=== PATIENT | male | born 1970 | race Caucasian/White ===

== ENCOUNTER 2022-03-19 14:59 | Emergency (ER) | payer OTHER, SELFPAY ==
[2022-03-19 15:13] VITALS: BP 144/84; PULSE 105; RESP 18; TEMP 36.8; O2SAT 95; BMI 41.1
--- NOTE | 2022-03-19 15:35 | CRLHL7_ITS ---
For Patients: As a result of the Cures Act, medical imaging exams and procedure reports are released immediately into your electronic medical record. You may view this report before your referring provider. If you have questions, please contact your health care provider. Indication: Chest Pain Comparison: Two-view chest February 29, 2020 Technique: PA and lateral views of the chest Findings: There is hyperinflation and chronic interstitial changes with minimal basilar atelectasis and parenchymal scar. There is no dense consolidation or effusion. The cardiac silhouette is mildly prominent. The bony thorax is grossly intact. Impression: Hyperinflation and chronic interstitial change with minimal basilar atelectasis. No dense consolidation. Dictated by Waqas Del Real MD @ 03/19/2022 5:42:43 PM (Electronically Signed)
[2022-03-19 16:00] VITALS: BP 125/74; PULSE 80; RESP 20; O2SAT 95
[2022-03-19 16:06] LABS: Chloride* 101 mmol/L (96-114); Sodium* 138 mmol/L (135-149)
[2022-03-19 16:07] LABS: Albumin* 4.2 g/dL (3.3-5.0); Potassium* 3.8 mmol/L (3.6-5.1)
[2022-03-19 16:09] LABS: Carbon Dioxide* 30 mmol/L (20-32); Creatinine* 1.4 mg/dL (0.5-1.5); Est. Creatinine Clearance* 72.58; Estimated Glomerular Filt Rate 61 ml/min
[2022-03-19 16:10] LABS: Aspartate Amino Transferase* 22 U/L (12-35); Basophils Absolute Auto 0.02 K/uL (0.00-0.30); Basophils Percent Auto 0.3 % (0.0-3.0); Bilirubin Direct* 0.3 mg/dL (0.0-0.5); Bilirubin Total* 0.5 mg/dL (0.1-1.5); Blood Urea Nitrogen* 18 mg/dL (7-30); Calcium* 9.2 mg/dL (8.4-10.6); Eosinophils Percent Auto 1.7 % (0.0-7.0); Glucose* 159 mg/dL (60-115); Hematocrit 42.7 % (37.0-53.0); Hemoglobin* 14.2 gm/dL (13.5-17.5); Immature Granulocytes Abs Auto 0.02 K/uL (0.00-0.30); Mean Corpuscular HGB Conc 33 gm/dL (32-36); Mean Corpuscular Hemoglobin 28 pg (26-34); Mean Corpuscular Volume 83 fL (80-100); Monocytes Percent Auto 6.3 % (0.0-11.0); Neutrophils Percent Auto 76.4 % (42.0-72.0); Platelet Count* 142 K/uL (140-440); RDW Coefficient of Variation % 15.2 % (11.5-15.5); Red Blood Count 5.16 m/uL (4.30-5.90); Total Protein* 6.4 g/dL (6.0-8.3); White Blood Count* 5.74 K/uL (4.50-11.00)
[2022-03-19 16:11] LABS: Alanine Aminotransferase* 22 U/L (4-50); Alkaline Phosphatase* 104 U/L (40-150)
[2022-03-19 16:14] LABS: Slide Review Reflex No
[2022-03-19 16:19] LABS: NT Pro B Type NatriureticPept* 80 PG/mL (0-125)
[2022-03-19 16:49] LABS: Hemoglobin A1C* 5.05 % (0-5.6)
[2022-03-19 16:56] VITALS: BP 130/113; PULSE 90; RESP 18; O2SAT 98
[2022-03-19 17:00] VITALS: BP 129/89; PULSE 105; RESP 18; O2SAT 97
--- NOTE | 2022-03-19 17:09 | ED.GENADULT ---
HPI - General Adult General Chief complaint: Chest Pain Stated complaint: Chest Pain Time Seen by Provider: 03/19/22 15:17 Source: patient Mode of arrival: ambulatory Limitations: no limitations History of Present Illness HPI narrative: [age] year male coming in today concerned about chest pain. He states that he was washing out a bucket when he lifted his left arm holding the pocket any felt very sharp jolt of pain into his left chest under his armpit. It resolved almost immediately. He denies shortness of breath, dizziness or diaphoresis. He states that he has been in his usual state of health recently but he has not been to the doctor in about 2 years for more than quick med checkup so he is quite concerned about what is going on. He wants to make sure that he is not having a heart attack, wants to make sure that his lungs are healthy, and he wants to make sure that his A1c is normal today. He denies recurring chest pain with activity. He denies any recent illness, no cough, fevers or chills. Normal appetite. Normal sleep patterns. Related Data Home Medications Medication Instructions Recorded Confirmed allopurinol 300 mg tablet 300 mg PO BID 03/19/22 03/19/22 amlodipine 5 mg tablet 5 mg PO BID 03/19/22 03/19/22 atorvastatin 40 mg tablet 40 mg PO HS 03/19/22 03/19/22 fluoxetine 20 mg capsule 20 mg PO DAILY 03/19/22 03/19/22 hydrochlorothiazide 12.5 mg capsule 12.5 mg PO DAILY 03/19/22 03/19/22 lisinopril 40 mg tablet 40 mg PO DAILY 03/19/22 03/19/22 metoprolol succinate 100 mg 100 mg PO DAILY 03/19/22 03/19/22 tablet,extended release 24 hr tamsulosin 0.4 mg capsule 0.4 mg PO DAILY 03/19/22 03/19/22 trazodone HS PRN 03/19/22 Allergies Allergy/AdvReac Type Severity Reaction Status Date / Time dye Allergy shock in Uncoded 03/19/22 15:11 back Review of Systems Status of ROS: Reports: 10 or more systems reviewed and unremarkable except as noted in History and below PFSH PFS Social History Smoking Status: Never smoker Do you use any of these nicotine containing products: None Second hand tobacco smoke exposure: No How often do you have a drink containing alcohol: monthly or less How many standard drinks containing alcohol do you have on a typical day: 1 or 2 How often do you have six or more drinks on one occasion: Never AUDIT-C Alcohol total score: 1 Non-prescribed substance use: denies use service: No Exam Narrative: Exam Narrative: Overweight, well-developed patient in no acute distress. Alert and oriented. Answers questions appropriately. Mood and affect are appropriate. Thoughts are goal oriented and rational. No tangential or magical thinking noted. Patient speaks in full sentences without needing to catch their breath. HEENT: Normocephalic atraumatic. Pupils are equally round reactive to light. Extraocular muscles are intact. Conjunctivae are moist without any icterus noted. Moist mucous membranes. Posterior pharynx is normal. Neck is soft without any lymphadenopathy or thyromegaly. No masses are appreciated. Patient does have seborrheic dermatitis. Cardiovascular: Heart is regular rate and rhythm S1 and S2 are present without any murmurs. Lungs: Clear to auscultation bilaterally no wheezes rhonchi or rales are appreciated. Patient takes deep breaths without any discomfort. Abdomen: Soft, protuberant and nontender nondistended with normal bowel sounds. No guarding or rebound. Extremities: Bilateral lower extremities are without edema. Normal DP and PT pulses. Skin: Well perfused without any obvious rashes. He does have some small scratches on multiple places of the lower extremities-states is from his dogs. No signs of infection. Const: Vital Signs, click to edit/add: Vital Signs - 24 hr 03/19/22 15:13 03/19/22 16:00 03/19/22 16:56 Temperature 98.2 F Pulse Rate [Left P ulse Oximeter] 105 H 80 90 Respiratory Rate 18 20 18 Blood Pressure [Le ft Upper Arm] 144/84 H 125/74 130/113 H Pulse Oximetry 95 95 98 03/19/22 17:00 Temperature Pulse Rate [Left P ulse Oximeter] 105 H Respiratory Rate 18 Blood Pressure [Le ft Upper Arm] 129/89 Pulse Oximetry 97 Course Vital Signs Vital signs: Initial Vital Signs Temperature 98.2 F 03/19/22 15:13 Temperature Source Temporal Artery Scan 03/19/22 15:13 Pulse Rate 105 H 03/19/22 15:13 Pulse Rhythm 03/19/22 15:13 Respiratory Rate 18 03/19/22 15:13 Blood Pressure 144/84 H 03/19/22 15:13 Blood Pressure Mean 104 03/19/22 15:13 Blood Pressure Position Sitting 03/19/22 15:13 Pulse Oximetry 95 03/19/22 15:13 Oxygen Delivery Method 03/19/22 15:13 Vital Signs Temperature 98.2 F 03/19/22 15:13 Pulse Rate 105 H 03/19/22 15:13 Respiratory Rate 18 03/19/22 15:13 Blood Pressure 144/84 H 03/19/22 15:13 Pulse Oximetry 95 03/19/22 15:13 Temperature 98.2 F 03/19/22 15:13 Pulse Rate 105 H 03/19/22 17:00 Respiratory Rate 18 03/19/22 17:00 Blood Pressure 129/89 03/19/22 17:00 Pulse Oximetry 97 03/19/22 17:00 Medical Decision Making MDM Narrative Medical decision making narrative: Labs were done and were unremarkable. Serial troponins were normal. Serial EKGs without ST changes consistent with ischemia. Patient remained asymptomatic while he was here. We did check his A1c which was great just above 5. And lastly chest x-ray was unremarkable as well. Discussed all results with the patient felt reassured. Recommend he follow up with primary care provider to discuss abnormalities on EKG. Medical Records Medical records reviewed: Yes I reviewed the patient's medical records Lab Data Lab results reviewed: Yes I reviewed the patient's lab results Labs: Lab Results 03/19/22 03/19/22 03/19/22 Range/Units 15:44 15:44 15:44 WBC 5.74 (4.50-11.00) K/uL RBC 5.16 (4.30-5.90) m/uL Hgb 14.2 (13.5-17.5) gm/dL Hct 42.7 (37.0-53.0) % MCV 83 (80-100) fL MCH 28 (26-34) pg MCHC 33 (32-36) gm/dL RDW Coeff of Jessica 15.2 (11.5-15.5) % Plt Count 142 (140-440) K/uL Neut % (Auto) 76.4 H (42.0-72.0) % Lymph % (Auto) 15.0 L (20-44) % [place] % (Auto) 6.3 (0.0-11.0) % Eos % (Auto) 1.7 (0.0-7.0) % Baso % (Auto) 0.3 (0.0-3.0) % Neut # (Auto) 4.40 (1.7-7.0) K/uL Lymph # (Auto) 0.90 (0.90-2.90) K/uL [place] # (Auto) 0.40 (0.00-0.90) K/UL Eos # (Auto) 0.10 (0.00-0.50) K/uL Baso # (Auto) 0.02 (0.00-0.30) K/uL Abs Immat Gran (auto) 0.02 (0.00-0.30) K/uL Sodium 138 (135-149) mmol/L Potassium 3.8 (3.6-5.1) mmol/L Chloride 101 (96-114) mmol/L Carbon Dioxide 30 (20-32) mmol/L BUN 18 (7-30) mg/dL Creatinine 1.4 (0.5-1.5) mg/dL Estimated Creat Clear 72.58 Estimated GFR 61 ml/min Glucose 159 H (60-115) mg/dL Hemoglobin A1c (0-5.6) % Calcium 9.2 (8.4-10.6) mg/dL Total Bilirubin 0.5 (0.1-1.5) mg/dL Direct Bilirubin 0.3 (0.0-0.5) mg/dL AST 22 (12-35) U/L ALT 22 (4-50) U/L Alkaline Phosphatase 104 (40-150) U/L NT-Pro-B Natriuret Pep 80 (0-125) PG/mL Total Protein 6.4 (6.0-8.3) g/dL Albumin 4.2 (3.3-5.0) g/dL POC Troponin I (0.01-0.04) ng/ml 03/19/22 03/19/22 03/19/22 Range/Units 15:44 15:44 17:15 WBC (4.50-11.00) K/uL RBC (4.30-5.90) m/uL Hgb (13.5-17.5) gm/dL Hct (37.0-53.0) % MCV (80-100) fL MCH (26-34) pg MCHC (32-36) gm/dL RDW Coeff of Jessica (11.5-15.5) % Plt Count (140-440) K/uL Neut % (Auto) (42.0-72.0) % Lymph % (Auto) (20-44) % [place] % (Auto) (0.0-11.0) % Eos % (Auto) (0.0-7.0) % Baso % (Auto) (0.0-3.0) % Neut # (Auto) (1.7-7.0) K/uL Lymph # (Auto) (0.90-2.90) K/uL [place] # (Auto) (0.00-0.90) K/UL Eos # (Auto) (0.00-0.50) K/uL Baso # (Auto) (0.00-0.30) K/uL Abs Immat Gran (auto) (0.00-0.30) K/uL Sodium (135-149) mmol/L Potassium (3.6-5.1) mmol/L Chloride (96-114) mmol/L Carbon Dioxide (20-32) mmol/L BUN (7-30) mg/dL Creatinine (0.5-1.5) mg/dL Estimated Creat Clear Estimated GFR ml/min Glucose (60-115) mg/dL Hemoglobin A1c 5.05 (0-5.6) % Calcium (8.4-10.6) mg/dL Total Bilirubin (0.1-1.5) mg/dL Direct Bilirubin (0.0-0.5) mg/dL AST (12-35) U/L ALT (4-50) U/L Alkaline Phosphatase (40-150) U/L NT-Pro-B Natriuret Pep (0-125) PG/mL Total Protein (6.0-8.3) g/dL Albumin (3.3-5.0) g/dL POC Troponin I 0.00 L 0.01 (0.01-0.04) ng/ml Imaging Data Chest x-ray: Attestation: I have reviewed the pertinent imaging results. My impression: No acute findings Radiologist's impression: Findings: There is hyperinflation and chronic interstitial changes with minimal basilar atelectasis and parenchymal scar. There is no dense consolidation or effusion. The cardiac silhouette is mildly prominent. The bony thorax is grossly intact. Impression: Hyperinflation and chronic interstitial change with minimal basilar atelectasis. No dense consolidation. ECG Data Attestation: I personally reviewed and interpreted this ECG as follows: (No evidence of ischemia. Normal sinus rhythm, nonspecific conduction delay with prolonged QT.) Discharge Plan Discharge Clinical Impression: Chest pain, musculoskeletal Patient Disposition: Home, Self-Care Condition: Stable Additional Instructions: Likely the cause of your pain was a muscle spasm. At this time I would not having further worry about. Recommend returning to the ER if you have sustained chest discomfort, shortness of breath or develop a fever. Recommend follow-up with primary care provider for a physical which you have not had an while in also to go over EKG results. Prescriptions: No Action lisinopril 40 mg tablet 40 mg PO DAILY 0RF Label Comments: TAKE ONE TABLET BY MOUTH EVERY DAY allopurinol 300 mg tablet 300 mg PO BID 0RF Label Comments: TAKE ONE TABLET BY MOUTH TWICE A DAY . amlodipine 5 mg tablet 5 mg PO BID 0RF Label Comments: TAKE ONE TABLET BY MOUTH TWICE A DAY . atorvastatin 40 mg tablet 40 mg PO HS 0RF Label Comments: TAKE ONE TABLET BY MOUTH AT BEDTIME . trazodone HS PRN0RF fluoxetine 20 mg capsule 20 mg PO DAILY 0RF Label Comments: TAKE ONE CAPSULE BY MOUTH EVERY DAY . hydrochlorothiazide 12.5 mg capsule 12.5 mg PO DAILY 0RF Label Comments: TAKE ONE CAPSULE BY MOUTH EVERY DAY . metoprolol succinate 100 mg tablet extended release 24 hr 100 mg PO DAILY 0RF Label Comments: TAKE ONE TABLET BY MOUTH EVERY DAY tamsulosin 0.4 mg capsule 0.4 mg PO DAILY 0RF Label Comments: TAKE ONE CAPSULE BY MOUTH EVERY DAY . Follow Up/Referrals: Provider,Not a Local [Primary Care Provider] - Stand Alone Forms: [employer] Info Instructions
[2022-03-19 17:30] VITALS: BP 139/90; PULSE 79; RESP 18; O2SAT 96
[2022-03-19 17:35] LABS: Troponin, Point-of-Care* 0.01 ng/ml (0.01-0.04)
== END 2022-03-19 18:37 | disposition home or self-care (01) ==
PROVIDERS: Emergency Provider Family Medicine
DX: R07.89 Other chest pain (principal)
CPT/HCPCS: 36415; 71046; 80048; 80076; 83036; 83880; 84484; 85025; 93005; 99284

== ENCOUNTER 2022-10-04 10:30 | Outpatient (CLI) | payer OTHER, SELFPAY ==
[2022-10-04 14:11] LABS: Albumin* 4.2 g/dL (3.3-5.0)
[2022-10-04 14:12] LABS: Chloride* 104 mmol/L (96-114); Potassium* 3.6 mmol/L (3.6-5.1); Sodium* 141 mmol/L (135-149)
[2022-10-04 14:14] LABS: Bilirubin Total* 0.8 mg/dL (0.1-1.5); Carbon Dioxide* 31 mmol/L (20-32); Cholesterol* 137 mg/dL (90-199); Creatinine* 1.4 mg/dL (0.5-1.5); Estimated Glomerular Filt Rate 60 ml/min
[2022-10-04 14:15] LABS: Alanine Aminotransferase* 42 U/L (4-50); Alkaline Phosphatase* 80 U/L (40-150); Aspartate Amino Transferase* 26 U/L (12-35); Blood Urea Nitrogen* 21 mg/dL (7-30); Calcium* 9.1 mg/dL (8.4-10.6); Glucose* 132 mg/dL (60-115); Total Protein* 6.6 g/dL (6.0-8.3); Triglycerides* 224 mg/dL (40-149); Uric Acid* 6.4 mg/dL (2.2-8.4)
[2022-10-04 14:16] LABS: HDL Cholesterol* 30 mg/dL (>=40); LDL Cholesterol Calculated 62 mg/dL (<100)
== END 2022-10-04 10:31 | disposition home or self-care (01) ==
PROVIDERS: Visit Provider Physician Assistant Medical
DX: E78.5 Hyperlipidemia, unspecified (principal); I10 Essential (primary) hypertension; M10.9 Gout, unspecified
CPT/HCPCS: 80053; 80061; 84550

== ENCOUNTER 2023-12-27 08:54 | Outpatient (CLI) | payer OTHER, SELFPAY ==
--- OUTSIDE RECORDS SUMMARY | 2023-12-28 08:16 | XMS_ITS | Encounter Summary ---
Author Name Unknown Organization [facility] Address [address] [place] [address] Care Team Providers Care Parimutuel Ticket Checker Name Role Phone Jose Adair MD Primary Care Provider [phone] Encounter Details Date Type Department Care Team Description 12/22/2023 Telephone [facility] [place] [address] [place] [address] Arcenio Dixon MD [address] [place], [place] [id number] Social History Tobacco Use Types Packs/Day Years Used Date Smoking Tobacco: Former Cigarettes 1.5 15 Q uit: 09/11/2005 Smokeless Tobacco: Never Alcohol Use Standard Drinks/Week Comments Not Currently 0 (1 standard drink = 0.6 oz pur e alcohol) Sex and Gender Information Value Date Recorded Sex Assigned at Male 03/03/2020 10:03 PM EDT Gender Identity Male 03/03/2020 10:03 PM EDT Sexual Orientation Straight 03/03/2020 10 :03 PM EDT documented as of this encounter Miscellaneous Notes * Telephone Encounter - Remedios Douglas - 12/23/2023 10:18 AM CDT LVM to schedule per re-referral from [facility] for CKD, unspecified. Recall created. * Telephone Encounter - Remedios Douglas - 12/22/2023 11:11 AM CDT Patient was re-referred to [facility]: 1) Re-referred from: [facility] 2) Reason for re-referral/diagnosis: CKD, unspecified 3) What records were uploaded to chart?: Re-referral with progress note and lab documented in this encounter Plan of Treatment Not on file documented as of this encounter Visit Diagnoses Not on filedocumented in this encounter Care Teams Parimutuel Ticket Checker Relationship Specialty Start Date End Date Jose Adair MD [address] [place] [address] PCP - General Family Medicine 02/12/20 documented as of this encounter
--- OUTSIDE RECORDS SUMMARY | 2023-12-28 08:16 | XMS_ITS | Encounter Summary ---
Author Name Unknown Organization [facility] Address [address] [place] [address] Care Team Providers Care Systems Software Engineer Name Role Phone Jose Adair MD Primary Care Provider [phone] Encounter Details Date Type Department Care Team Description 09/08/2020 Orders Only [facility] [place] [address] [place] [phone] Arcenio Dixon MD [address] [place], [place] [address] Chronic kidney disease, Stage III (moderate) Social History Tobacco Use Types Packs/Day Years [...] PM EDT documented as of this encounter Plan of Treatment Not on file documented as of this encounter Visit Diagnoses Diagnosis Chronic kidney disease, Stage III (moderate) documented in this encounter Care Teams Systems Software Engineer Relationship Specialty Start Date End Date Jose Adair MD [address] [place], [place] [id number] PCP - General Family Medicine 02/12/20 documented as of this encounter
--- OUTSIDE RECORDS SUMMARY | 2023-12-28 08:16 | XMS_ITS | Continuity of Care Document ---
Author Name Unknown Organization [facility] Address [address] [place] [address] Phone Care Team Providers Care Residential Air Sealing Technician Name Role Phone Unavailable Unavailable Unavailable Advance Directives Directive Yes / No Effective Date File Name No Information Encounters Encounter Description Practice Location Reason(s) For Visit Diagnoses Date Provider Providers Copied on Encounter [facility], [address], [place], [address], [place] tel:[phone] [facility] No Information No Information Family History Family Member Type Diagnosis Age At Onset Problem (finding) Problem (finding) Problem (finding) Problem (finding) Problem (finding) Problem (finding) Payers Payer name Insurance type Covered alliance party ID Authoriza tion(s) [employer] [id number] Social History Type Description Quantity Date Captured Comments Sex Male Smoking Status No Information Chief Complaint And Reason For Visit No Information Reason For Referral Reason For Referral No Information History Of Present Illness Encounter Date Complaint History Of Prese nt Illness No Information Functional Status Date Functional Assessmen t No Information Instructions Date Instruction Additional Infor mation No Information Assessments Type Assessment Date No Information Patient Care Teams Name Effective Dates (start - stop) Status Members No Information
--- OUTSIDE RECORDS SUMMARY | 2023-12-28 08:16 | XMS_ITS | Clinical Summary ---
Author Name Unknown Organization [facility] Address [address] [place] [address] Phone Care Team Providers Care Gang Investigator Name Role Phone Jose Adair MD Primary Care Provider [phone] Allergies Active Allergy Reactions Criticality Noted Date Comments Perflutren Lipid Microspheres 2019 Propylene Glycol 03/05/2020 Medications Medication Sig Dispensed Refills Start Date End Date Status loperamide (IMODIUM) 2 MG capsule Take 4 mg by mouth As directed 0 11/07/2014 Active allopurinol (ZYLOPRIM) 300 MG tablet Take 1 tablet by mouth 2 (two) times a day 0 Active amLODIPine (NORVASC) 5 MG tablet Take 1 tablet by mouth 2 (two) times a day 0 Active tamsulosin (FLOMAX) 0.4 MG 24 hr capsule Take 1 capsule by mouth 1 (one) time each day 0 Active Metoprolol Succinate 100 MG capsule extended-release 24 hour sprinkle Take 1 tablet by mouth every night 0 Active lisinopril (PRINIVIL,ZESTRIL) 40 MG tablet Take 1 tablet by mouth every morning 0 Active hydroCHLOROthiazide (MICROZIDE) 12.5 MG capsule Take 1 capsule by mouth every morning 0 Active FLUoxetine (PROzac) 20 MG capsule Take 1 capsule by mouth every morning 0 Active atorvastatin (LIPITOR) 40 MG tablet Take 1 tablet by mouth 1 (one) time each day in the evening 0 Active spironolactone (Aldactone) 25 MG tablet Take 1 tablet (25 mg total) by mouth 1 (one) time each day 30 tablet 11 03/05/2020 Active predniSONE (DELTASONE) 10 MG tablet AT START OF GOUT ATTACK, TAKE TAKE FOUR TABLETS BY MOUTH EVERY DAY FOR 3 DAYS, THEN TAKE THREE TABLETS BY MOUTH EVERY DAY FOR 3 DAYS, THEN T 0 02/12/2020 Active amLODIPine (NORVASC) 10 MG tablet Take 5 mg by mouth twice a day 0 02/27/2020 Active Active Problems No known active problems Encounters Date Type Department Care Team Description 12/22/2023 Documentation Only [facility] [address] [place] [phone] Arcenio Dixon MD 12/22/2023 Telephone [facility] [address] [place] [phone] Arcenio Dixon MD from Last 3 Months Family History Medical History Relation Comments Dementia Father Diabetes Father Hypertension Father Stroke Father Relation Status Comments Father Social History Tobacco Use Types Packs/Day Years [...] Orientation Straight 03/03/2020 10 :03 PM EDT Last Filed Vital Signs Vital Sign Reading Time Taken Comments Blood Pressure 119/76 05/14/2020 3:18 PM CDT Pulse 72 05/14/2020 3:18 PM CDT Temperature - - Respiratory Rate - - Oxygen Saturation - - Inhaled Oxygen Concentration - - Weight 134 kg (296 lb 1.6 oz) 05/14/2020 3:18 PM CDT Height 182.9 cm (6') 05/14/2020 3:18 PM CDT Body Mass Index 40.16 05/14/2020 3:18 PM CDT Plan of Treatment Health Maintenance Due Date Last Done Comments Hepatitis B Vaccine (1 of 3 - 3-dose series) 1970 Pneumococcal Vaccine: Pediat rics (0 to 5 Years) and At-Risk Patients (6 to 64 Years) (1 of 2 - PCV) 1976 Colorectal Cancer Screening: Annual FOBT 2019 Colorectal Cancer Screening: Colonoscopy 2019 Colorectal Cancer Screening: Sigmoidoscopy 2019 Influenza Vaccine (Season Ended) 2024 07/10/20, 08/11/2006 Care Teams Gang Investigator Relationship Specialty Start Date End Date Jose Adair MD [address] [place] [address] PCP - General Family Medicine 02/12/20
--- OUTSIDE RECORDS SUMMARY | 2023-12-28 08:16 | XMS_ITS | Encounter Summary ---
Author Name Unknown Organization [facility] Address [address] [place] [address] Care Team Providers Care Department Of Natural Resources Officer Name Role Phone Jose Adair MD Primary Care Provider [phone] Encounter Details Date Type Department Care Team Description 03/19/2020 Orders Only [facility] [place] [address] [place] [address] Arcenio Dixon MD [address] [place] [address] Secondary hypertension, not otherwise specified; Chronic kidney disease, Stage III (moderate) ([facility]) Social History Tobacco Use Types Packs/Day Years [...] Orientation Straight 03/03/2020 10 :03 PM EDT COVID-19 Exposure Response Date Recorded In the last month, have you been in contact with someone who was confirmed or suspected to have Coronavirus / COVID-19? No / Unsure 03/03/2020 10:31 PM EDT documented as of this encounter Plan of Treatment Not on file documented as of this encounter Visit Diagnoses Diagnosis Secondary hypertension, not otherwise specified Chronic kidney disease, Stage III (moderate) documented in this encounter Care Teams Department Of Natural Resources Officer Relationship Specialty Start Date End Date Jose Adair MD [address] [place] [address] PCP - General Family Medicine 02/12/20 documented as of this encounter
--- OUTSIDE RECORDS SUMMARY | 2023-12-28 08:16 | XMS_ITS | Encounter Summary ---
Author Name Unknown Organization [facility] Address [address] [place] [address] Care Team Providers Care Conservation Science Officer Name Role Phone Jose Adair MD Primary Care Provider [phone] Encounter Details Date Type Department Care Team Description 12/22/2023 Documentation Only [facility] [place] [address] [place] [phone] Arcenio Dixon MD [address] [place] [address] Social History Tobacco Use Types Packs/Day Years [...] on filedocumented in this encounter Care Teams Conservation Science Officer Relationship Specialty Start Date End Date Jose Adair MD [address] [place] [address] PCP - General Family Medicine 02/12/20 documented as of this encounter
--- OUTSIDE RECORDS SUMMARY | 2023-12-28 08:17 | XMS_ITS | Clinical Summary ---
Author Name Unknown Organization [facility] Address [place], [place] [address] Care Team Providers Care Conduit Bender Name Role Phone Pcp, No Primary Care Provider Unavailabl e Allergies No known active allergies Medications Medication Sig Dispensed Refills Start Date End Date Status loperamide (IMODIUM) 2 mg capsule Take 4mg by mouth with 1st loose stool, then 2mg with each subsequent loose stool. Max 16 mg in 24 hrs 0 11/07/2014 Active lisinopril (PRINIVIL; ZESTRIL) 20 mg tablet Take 1 tablet by mouth once daily. 0 11/07/2014 Active Active Problems Problem Noted Date Diagnosed Date Diarrhea 06/25/2015 Overview: Colonoscopy 06/2015 hyperplastic polyp, repeat in 10 years KNEE PAIN 02/04/2002 CONTUSION, KNEE 02/04/2002 OBESITY TOBACCO USE HX, FAMILY, DIABETES MELLITUS DERMATOFIBROMA Encounters Date Type Department Care Team Description 12/22/2023 10:00 AM CDT [facility] [address] [place] [address] Porsche Larkin MD Arrived from Last 3 Months Immunizations Name Administration Dates Next Due Influenza, IIV3 (Age >=3 years) 08/11/2006 MMR 05/04/2005 Td (Age >=7 Years) 05/04/2005 Family History Medical History Relation Name Comments Genetic Other Diabetes and CA D. Relation Name Status Comments Other Social History Tobacco Use Types Packs/Day Years Used Date Smoking Tobacco: Former Cigarettes Q uit: 09/11/1978 Smokeless Tobacco: Never Tobacco Cessation:Counseling Given: Yes Alcohol Use Standard Drinks/Week Comments Yes 0 (1 standard drink = 0.6 oz pur e alcohol) rarely Social Connections Answer Date Recorded Frequency of Communication with Friends and Fami ly Not on file 12/22/2023 Sex and Gender Information Value Date Recorded Sex Assigned at Not on file Gender Identity Not on file Sexual Orientation Not on file Obstetrics History Last Filed Vital Signs Vital Sign Reading Time Taken Comments Blood Pressure 156/93 06/24/2015 12:02 PM CDT Pulse 79 06/24/2015 12:02 PM CDT Temperature 36.7 ??C (98.1 ??F) 11/07/2014 1:38 PM CS T Respiratory Rate 14 02/13/2002 12:00 AM CDT Oxygen Saturation 92% 06/24/2015 12:02 PM CDT Inhaled Oxygen Concentration - - Weight 164.2 kg (362 lb 1 oz) 11/07/2014 1:38 PM WIRELESS DEVELOPMENT MANAGER Height 188 cm (6' 2) 11/07/2014 1:38 PM WIRELESS DEVELOPMENT MANAGER Body Mass Index 46.49 11/07/2014 1:38 PM WIRELESS DEVELOPMENT MANAGER Plan of Treatment Health Maintenance Due Date Last Done Comments Tdap 1981 Depression screening for age 12+ 1982 HIV for age 15-65 1985 BMI (ht and wt on same day) for age 18+ 1988 Hepatitis C screening for ag e 18-79 1988 Tetanus booster 05/04/2015 05/04/2005 Lipids for age 45-75 2015 11/01/2001, 11/01/2001 Zoster (shingles) series for age 50+ (1 of 2) 2020 COVID-19 vaccine series (2022-24 season) 2023 Influenza for age 50-64 05/06/2024 08/11/2006 Colonoscopy through age 75 06/24/202506/24, 06/24/2015 Pneumococcal series for age 6-64 Aged Out No longer eligible b ased on patient's age to complete this topic Procedures Procedure Name Priority Date/Time Associated Diagnosis Comments CHOLESTEROL,TOTAL Routine 11/01/2001 4:3 0 PM WIRELESS DEVELOPMENT MANAGER from Last 3 Months or Most Recently Relevant to Health Maintenance Results * CHOLESTEROL,TOTAL (11/01/2001 4:30 PM WIRELESS DEVELOPMENT MANAGER) CHOLESTEROL,TOT AL 169 110 - 199 mg/dL 11/01/2001 4:30 PM WIRELESS DEVELOPMENT MANAGER Narrative 02/13/2004 1:31 PM CDT Ordered by an unspecified provider. Other Clinical Staff CHEMISTRY from Last 3 Months or Most Recently Relevant to Health Maintenance Care Teams Conduit Bender Relationship Specialty Start Date End Date Pcp, No . PCP - General 10/15/19
--- OUTSIDE RECORDS SUMMARY | 2023-12-28 08:17 | XMS_ITS | Encounter Summary ---
Author Name Unknown Organization [facility] Address [address] [place] [address] Care Team Providers Care Rolled Seat Trimmer Name Role Phone Jose Adair MD Primary Care Provider [phone] Encounter Details Date Type Department Care Team Description 03/06/2020 Orders [place] [facility] [place] [address] [place] [address] Arcenio Dixon MD [address] [place] [address] Secondary hypertension, not otherwise specified; Chronic kidney disease, Stage III (moderate) ([facility]) Social History Tobacco Use Types Packs/Day Years [...] on file documented as of this encounter Procedures Procedure Name Priority Date/Time Associated Diagnosis Comments TSH Routine 03/07/2020 Secondary hypertension, not otherwise specified Chronic kidney disease, Stage III (moderate) (HCC) RENIN ACTIVITY Routine 03/07/2020 Secondary hypertension, not otherwise specified Chronic kidney disease, Stage III (moderate) (HCC) PROTEIN / CREATININE RATIO, URINE Routine 03/07/2020 Secondary hypertension, not otherwise specified Chronic kidney disease, Stage III (moderate) (HCC) ALDOSTERONE Routine 03/07/2020 Secondary hypertension, not otherwise specified Chronic kidney disease, Stage III (moderate) (HCC) HEMOGLOBIN Routine 03/07/2020 Secondary hypertension, not otherwise specified Chronic kidney disease, Stage III (moderate) (HCC) PTH, INTACT Routine 03/07/2020 Secondary hypertension, not otherwise specified Chronic kidney disease, Stage III (moderate) (HCC) RENAL FUNCTION PANEL Routine 03/07/2020 Secondary hypertension, not otherwise specified Chronic kidney disease, Stage III (moderate) (HCC) documented in this encounter Results * TSH (03/07/2020) TSH 0.639 [facility] Blood 03/07/2020 Arcenio Dixon MD LAB BLOOD ORDERABLES Performing Organization Address [facility] Co de Phone Number [facility] * Renin Activity, Plasma (03/07/2020) Renin Plasma 0.1 ng/mL/hr [facility] Blood (Blood, Venous) 03/07/2020 Arcenio Dixon MD LAB BLOOD ORDERABLES Performing Organization Address [facility]/ZIP Co de Phone Number [facility] * Aldosterone (03/07/2020) Aldosterone 18.9 ng/dL [facility] Blood (Blood, Venous) 03/07/2020 Arcenio Dixon MD LAB BLOOD ORDERABLES Performing Organization Address [facility] de Phone Number [facility] * Protein, Total, Random Urine w/Creatinine (Protein/Creat Ratio) (03/07/2020) Creatinine, Urine Random 658 mg/dL [facility] Urine Protein/Creatin ine Ratio 0.09 mg/mg creat [facility] Protein Urine Random 61 mg/dL [facility] Urine (Urine, Clean Catch) 03/07/2020 Arcenio Dixon MD LAB URINE ORDERABLES Performing Organization Address [facility] de Phone Number [facility] * PTH, Intact (03/07/2020) Parathyroid Hormone, Intact 28 pg/mL [facility] Blood (Blood, Venous) 03/07/2020 Arcenio Dixon MD LAB BLOOD ORDERABLES Performing Organization Address [facility] de Phone Number [facility] * Hemoglobin (03/07/2020) Hemoglobin 15.3 13.5 - 17.5 [facility] Blood (Blood, Venous) 03/07/2020 Arcenio Dixon MD LAB BLOOD ORDERABLES Performing Organization Address [facility] de Phone Number [facility] * (ABNORMAL) Renal Function Panel (03/07/2020) Glucose 131(H) mg/dL [facility] BUN 17 mg/dL [facility] Creatinine 1.3 mg/dL [facility] Sodium 142 mEq/L [facility] Potassium 3.7 mEq/L [facility] Chloride 102 [facility] Carbon Dioxide 32 mmol/L [facility] Calcium 10.0 mg/dL [facility] Phosphorus, Serum 3.3 mg/dL [facility] Albumin (Blood) 4.4 g/dL [facility] Blood (Blood, Venous) 03/07/2020 Arcenio Dixon MD LAB BLOOD ORDERABLES Performing Organization Address [facility] de Phone Number [facility] documented in this encounter Visit Diagnoses Diagnosis Secondary hypertension, not otherwise specified Chronic kidney disease, Stage III (moderate) documented in this encounter Care Teams Rolled Seat Trimmer Relationship Specialty Start Date End Date Jose Adair MD [address] [place] [address] PCP - General Family Medicine 02/12/20 documented as of this encounter
== END 2023-12-27 08:55 | disposition home or self-care (01) ==
LOC: NFLDREF 12-28 08:12
PROVIDERS: PCP Physician Assistant Medical; Referring Provider Physician Assistant Medical; Visit Provider Physician Assistant Medical
DX: E66.01 Morbid (severe) obesity due to excess calories (principal); E78.2 Mixed hyperlipidemia; I10 Essential (primary) hypertension; R73.9 Hyperglycemia, unspecified; Z13.29 Encounter for screening for other suspected endocrine disorder
CPT/HCPCS: 80053; 80061; 84443

== ENCOUNTER 2024-01-10 08:06 | Outpatient (RCR) | payer OTHER, SELFPAY ==
[2024-01-10 09:11] VITALS: BP 146/93; PULSE 106; RESP 18
[2024-01-10] MEDS: REGADENOSON 0.4 MG/5 ML SYRINGE IVP (09:11)
[2024-01-10] MEDS: SODIUM CHLORIDE 0.9 % (FLUSH) 10 ML SYRINGE IVF (09:30)
--- NOTE | 2024-01-10 10:10 | W.PM.STED ---
Stress Test Note Date Date of test: 01/10/24 Providers Primary care provider: Ashia Kasper Stress test physician: Benji Maurer Stress Test Note Stress test ordered: Lexiscan Indication for test: Abnormal echo Stress test medicine: Lexiscan Results discussion: Patient is a very pleasant 53-year-old gentleman who presents for the above test after discussion the risks benefits and side effects he would like to proceed cardiac stress test medical history form is reviewed, along with the EKG. He is in normal sinus rhythm with a ventricular rate of 77 and a blood pressure 144/90 4p standard infusion of Lexiscan along with walking is initiated, he followed the normal protocol for 5 minutes, unfortunately after 3 minutes we had to take him off the treadmill because he was feeling fatigued. He did not have any chest pain or any anginal symptoms. The remaining 2 minutes was done sitting in a chair lifting his legs. His maximum blood pressure is 146 on 93. Maximum heart rate was 137 which is 96% of the maximum no significant ST wave changes are noted. There is no dysrhythmias. He recovered well. Was asymptomatic. After Impression: Negative electrographic portion of Lexiscan, did induce some fatigue but this was thought to be secondary to medication. Follow up suggested: Await nuclear images, clinical correlation with these will be needed patient recovered well and will be discharged from this facility when he meets criteria. There were no complications
== END 2024-01-10 10:00 | disposition home or self-care (01) ==
LOC: STRESS 08:06
PROVIDERS: PCP Physician Assistant Medical; Visit Provider Family Medicine
DX: R93.1 Abnormal findings on diagnostic imaging of heart and coronary circulation (principal)
CPT/HCPCS: 78452; 93016; 93017; A9500; J2785

== ENCOUNTER 2024-02-15 14:05 | Outpatient (REF) | payer OTHER, SELFPAY ==
--- OUTSIDE RECORDS SUMMARY | 2024-02-15 14:08 | XMS_ITS | Clinical Summary ---
Author Organization [facility] Address [place], [place] [address] Care Team Providers Care Hot Bread Baker Name Role Phone Pcp, No Primary Care [...] Encounters Date Type Department Care Team Description 02/14/2024 Orders Only [facility] [address] [place] [address] Hina Aadn MD Outside Order 01/10/2024 8:00 AM CDT Ancillary Procedure [facility] [address] [place] [address] 12/22/2023 10:00 AM CDT Office Visit [facility] [address] [place] [address] Porsche Martinez MD from Last 3 Months Immunizations Name Administration [...] (362 lb 1 oz) 11/07/2014 1:38 PM BUNDLE PACKER Height 188 cm (6' 2) 11/07/2014 1:38 PM BUNDLE PACKER Body Mass Index 46.49 11/07/2014 1:38 PM BUNDLE PACKER Plan of Treatment Health Maintenance Due Date [...] (1 of 2) 2020 COVID-19 vaccine series ( - 2022-24 season) 2023 Influenza for age 50-64 05/06/2024 08/11/2006 Colonoscopy through age 75 06/24/202506/24, 06/24/2015 Pneumococcal series for age 6-64 Aged Out No longer eligible b ased on patient's age to complete this topic Procedures Procedure Name Priority Date/Time Associated Diagnosis Comments NM CARDIAC MPI STRESS TEST Routine 01/10/2024 1:26 PM CDT Abnormal echocardiogram CHOLESTEROL,TOTAL Routine 11/01/2001 4:3 0 PM BUNDLE PACKER from Last 3 Months or Most Recently Relevant to Health Maintenance Results * NM CARDIAC MPI STRESS TEST (01/10/2024 1:26 PM CDT) Anatomical Region Laterality Modality HEART Ultrasound 01/10/2024 8:56 AM CDT Narrative 01/11/2024 9:00 AM CDT ? Toll -free: [phone] ?[facility] ?MYOCARDIAL PERFUSION IMAGING REPORT REST/STRESS SINGLE ISOTOPE GATED SPECT IMAGING. Patient Name: ?? WILBERT GARCIA ?Gender: ? M ? Height: ? 74 in Accession #: ?[id number] ?Weight: ? 328 lb Study Date: ? 01/10/2024 8:56:35 AM ?BSA: ?2.68 m? ? ? : ?1970 53 years ? BMI: ?42.11 kg/m? ? ? Ord. Prov.: ? PORSCHE MARTINEZ ?Monitoring Prov.: Seper, Benji Performing Site [facility] Clinical History: ? Chest pain, dyspnea and fatigue. No known coronary artery ?disease. Cardiac Risk Factors: Hypertension, obesity, hypercholesterolemia and diabetes ?mellitus. Other Symptomatology: MAURI. Cardiac History: ?LVH. Beta candace/calcium channel candace/nitrate taken today: Yes. Caffeine/methylxanthine taken within 12 hrs: ?No. Chest pain/discomfort at baseline: ?No. IMPRESSION 1. Myocardial perfusion was normal. 2. Left ventricular cavity size was borderline enlarged (resting EDV 147 ml). 3. Overall left ventricular systolic function was normal without wall motion abnormalities. The post stress LVEF was calculated to be 65 %. 4. See separate report for EKG intrepretation. 5. There were no prior studies available for comparison. 6. If a future perfusion study is warranted, consider cardiac PET because of patient's body habitus. STRESS MPI PROCEDURE The patient was studied utilizing a two day rest/stress protocol. Myocardial perfusion imaging was performed at rest, 26 minutes following the intravenous injection of 39.8 mCi of 99mTc sestamibi. 30 seconds after the 15 second IV regadenoson injection, the patient was injected via IV with 41.2 mCi of 99mTc sestamibi. Gated post-stress tomographic imaging was performed 35 minutes after stress. After image acquisition was completed, data was reconstructed in short, horizontal long and vertical long axis views and tomographic slices were generated. - Pharmacologic stress testing was performed with an IV regadenoson dose of 0.4 mg. - Low level exercise consisting of walking on treadmill at 0.8 mph with a 0% grade was performed for 1 minute prior to, during, and 2 minutes after the vasodilator infusion. - Resting heart rate was 75 bpm, peak heart rate was 137 bpm. - Resting blood pressure was 144/94 mmHg; peak blood pressure was 138/87 mmHg. - Patient did not develop significant symptoms. FINDINGS Imaging - The overall quality of the study was poor with mild soft tissue attenuation on rest and stress studies. Computerized motion correction was not applied to rest and stress studies. - SPECT perfusion images were normal without evidence of ischemia or infarction. - Computer processed gated imaging revealed borderline enlarged left ventricular size with a calculated LVEF of 65 %. (Lab normals: LVEF >50%, LV Size <150 ml). - There was normal post-stress myocardial thickening and wall motion. - No right ventricular abnormalities were identified. - There was no evidence of abnormal lung or extracardiac activity. - If a future perfusion study is warranted, consider cardiac PET because of patient's body habitus. This study was interpreted and electronically signed by Perfecto Bryant MD on 01/10/2024 2:47:04 PM. ??Final (Updated) ?? Procedure Note Perfecto Bryant MD - 01/11/2024 Toll -free: [phone] [facility] MYOCARDIAL PERFUSION IMAGING REPORT REST/STRESS SINGLE ISOTOPE GATED SPECT IMAGING. Patient Name: WILBERT GARCIA Gender: Brady Height: 74 in Weight: 328 lb Study Date: 01/10/2024 8:56:35 AM BSA: 2.68 m? ? ? : 1970 53 years BMI: 42.11kg/m? ? ? Ord. Prov.: [facility] Monitoring Prov.: Benji Maurer [facility] Clinical History: Chest pain, dyspnea and fatigue. No known coronaryartery disease. Cardiac Risk Factors: Hypertension, obesity, hypercholesterolemia anddiabetes mellitus. Other Symptomatology: MAURI. Cardiac History: LVH. Beta candace/calcium channel candace/nitrate taken today: Yes. Caffeine/methylxanthine taken within 12 hrs: No. Chest pain/discomfort at baseline: No. IMPRESSION 1. Myocardial perfusion was normal. 2. Left ventricular cavity size was borderline enlarged (resting EDV 147ml). 3. Overall left ventricular systolic function was normal without wallmotion abnormalities. The post stress LVEF was calculated to be 65 %. 4. See separate report for EKG intrepretation. 5. There were no prior studies available for comparison. 6. If a future perfusion study is warranted, consider cardiac PET becauseof patient's body habitus. STRESS MPI PROCEDURE The patient was studied utilizing a two day rest/stress protocol.Myocardial perfusion imaging was performed at rest, 26 minutes followingthe intravenous injection of 39.8 mCi of 99mTc sestamibi. 30 seconds afterthe 15 second IV regadenoson injection, the patient was injected via IVwith 41.2 mCi of 99mTc sestamibi. Gated post-stress tomographic imagingwas performed 35 minutes after stress. After image acquisition wascompleted, data was reconstructed in short, horizontal long and verticallong axis views and tomographic slices were generated. - Pharmacologic stress testing was performed with an IV regadenoson doseof 0.4 mg. - Low level exercise consisting of walking on treadmill at 0.8 mph with a0% grade was performed for 1 minute prior to, during, and 2 minutes afterthe vasodilator infusion. - Resting heart rate was 75 bpm, peak heart rate was 137 bpm. - Resting blood pressure was 144/94 mmHg; peak blood pressure was 138/87mmHg. - Patient did not develop significant symptoms. FINDINGS Imaging - The overall quality of the study was poor with mild soft tissueattenuation on rest and stress studies. Computerized motion correction was not applied torest and stress studies. - SPECT perfusion images were normal without evidence of ischemia orinfarction. - Computer processed gated imaging revealed borderline enlarged leftventricular size with a calculated LVEF of 65 %. (Lab normals: LVEF >50%, LV Size <150ml). - There was normal post-stress myocardial thickening and wall motion. - No right ventricular abnormalities were identified. - There was no evidence of abnormal lung or extracardiac activity. - If a future perfusion study is warranted, consider cardiac PET becauseof patient's body habitus. This study was interpreted and electronically signed by Edgar Kent 01/10/2024 2:47:04 PM. Final (Updated) Coleman Woody Martinez MD NM * CHOLESTEROL,TOTAL (11/01/2001 4:30 PM BUNDLE PACKER) CHOLESTEROLTOT AL 169 110 - 199 mg/dL 11/01/2001 4:30 PM BUNDLE PACKER Narrative 02/13/2004 1:31 PM CDT Ordered by an unspecified provider. Other Clinical Staff CHEMISTRY from Last 3 Months or Most Recently Relevant to Health Maintenance Care Teams Hot Bread Baker Relationship Specialty Start Date End Date Pcp, No . PCP - General 10/15/19
--- OUTSIDE RECORDS SUMMARY | 2024-02-15 14:08 | XMS_ITS | Encounter Summary ---
Author Organization [facility] Address [address] [place] [address] Care Team Providers Care Carton Forming Machine Operator Name Role Phone Ashia Kasper PA-C Primary Care Provider [phone] Encounter Details Date Type Department Care Team (Late st Contact Info) Description 01/23/2024 Documentation Only [facility] [address] [place] [address] Rosi Verdugo [address] [place] [address] Social History Tobacco Use Types Packs/Day Years Used Date Smoking Tobacco: Former Cigarettes 1.5 15 0 09/11/1990 - 09/11/2005 Smokeless Tobacco: Never Alcohol Use Standard [...] on filedocumented in this encounter Care Teams Carton Forming Machine Operator Relationship Specialty Start Date End Date Ashia Kasper PA-C [address] [place] [address] PCP - General 01/23/24 documented as of this encounter
--- OUTSIDE RECORDS SUMMARY | 2024-02-15 14:08 | XMS_ITS | Encounter Summary ---
Author Organization [facility] Address [address] [place] [address] Care Team Providers Care Chief Operations Officer Name Role Phone Ashia Kasper-Mayito Primary Care Provider Reason for Referral * Consultation (Routine) - Closed Specialty Diagnoses / Procedures Referred By Contac t Referred To Contact Nephrology Diagnoses Chronic kidney disease, not otherwise specified [place] [address] [place] [address] Phone: [phone] Arcenio Dixon MD [address] [place] [address] Referral ID Status Reason Start Date Expiration Date V isits Requested Visits Authorized [id number] Closed Specialty Services Required 01/12/2024 01/11/2025 1 1 Encounter Details Date Type Department Care Team (Latest Contact Info) Description 01/12/2024 Transcribe Orders [facility] [address] [place] [id number] Jose Adair MD [address] [place] [address] Chronic kidney disease, not otherwise specified (Primary Dx) Social History Tobacco Use Types Packs/Day Years [...] as of this encounter Plan of Treatment Scheduled Referrals Name Type Priority Associated Diagnoses Order Schedule Ambulatory referral to Nephrology Outpatient Referral Routine Chronic kidney disease, not otherwise specified Expected: 01/12/2024, Expires: 02/11/2025 documented as of this encounter Visit Diagnoses Diagnosis Chronic kidney disease, not otherwise specified- Primary documented in this encounter Care Teams Chief Operations Officer Relationship Specialty Start Date End Date Ashia Kasper PA-C [address] [place] [address] PCP - General 01/23/24 documented as of this encounter
--- OUTSIDE RECORDS SUMMARY | 2024-02-15 14:08 | XMS_ITS | Clinical Summary ---
Author Organization [facility] Address [address] [place] [address] Phone Care Team Providers Care Workforce Development Program Director Name Role Phone KasperCynthia warrenjanene [place] Primary Care Provider [phone] Allergies Active Allergy Reactions Criticality Noted Date Comments Perflutren Lipid Microspheres 2019 Propylene Glycol 03/05/2020 Medications Medication Sig Dispensed Refills Start Date End Date Status allopurinol (ZYLOPRIM) 300 MG tablet Take 1 tablet by mouth 2 (two) times a day Active amLODIPine (NORVASC) 5 MG tablet Take 1 tablet by mouth 2 (two) times a day Active tamsulosin (FLOMAX) 0.4 MG 24 hr capsule Take 1 capsule by mouth 1 (one) time each day Active Metoprolol Succinate 100 MG capsule extended-relea se 24 hour sprinkle Take 1 tablet by mouth every night Active lisinopril (PRINIVIL,ZEST RIL) 40 MG tablet Take 1 tablet by mouth every morning Active FLUoxetine (PROzac) 20 MG capsule Take 1 capsule by mouth every morning Active atorvastatin (LIPITOR) 40 MG tablet Take 1 tablet by mouth 1 (one) time each day in the evening Active traZODone (DESYREL) 50 MG tablet TAKE ONE TABLET BY MOUTH EVERY EVENING AT BEDTIME 4 Active omeprazole (PriLOSEC) [address] capsule TAKE ONE CAPSULE BY MOUTH EVERY DAY NEEDED FOR REFLUX 4 Active Semglee, yfgn, 100 UNIT/ML solution pen-injector INJECT 10 UNITS SUBCUTANEOUSLY EVERY EVENING 4 Active aspirin (ST JUAN MANUEL) 81 MG EC tablet Take 81 mg by mouth 1 (one) time each day Active hydroCHLOROthi azide 25 MG tablet Take 1 tablet (25 mg total) by mouth 1 (one) time each day 90 tablet 3 4 02/07/20 25 Active loperamide (IMODIUM) 2 MG capsule Take 4 mg by mouth As directed 5 02/07/20 24 Discontinued(Med List Maintenance) hydroCHLOROthi azide (MICROZIDE) 12.5 MG capsule Take 1 capsule by mouth every morning 02/07/20 24 Discontinued spironolactone (Aldactone) 25 MG tablet Take 1 tablet (25 mg total) by mouth 1 (one) time each day 30 tablet 11 0 02/07/20 24 Discontinued(Med List Maintenance) predniSONE (DELTASONE) 10 MG tablet AT START OF GOUT ATTACK, TAKE TAKE FOUR TABLETS BY MOUTH EVERY DAY FOR 3 DAYS, THEN TAKE THREE TABLETS BY MOUTH EVERY DAY FOR 3 DAYS, THEN T 0 02/07/20 24 Discontinued(Med List Maintenance) amLODIPine (NORVASC) 10 MG tablet Take 5 mg by mouth twice a day 0 02/07/20 24 Discontinued Active Problems Problem Noted Date Diagnosed Date Chronic kidney disease 02/07/2024 Benign prostatic hyperplasia 02/07/2024 Hyperlipidemia 02/07/2024 Gastroesophageal reflux disease 02/07/2024 Type 2 diabetes mellitus 02/07/2024 Hypertension 05/03/2012 Gout 05/03/2012 Encounters Date Type Department Care Team Description 02/15/2024 Orders Only [facility] [address] [place] [id number] Arcenio Dixon MD Stage 3a chronic kidney disease (HCC) 02/07/2024 10:00 AM EDT Office Visit [facility] [address] [place] [id number] Arcenio Dixon MD Stage 3a chronic kidney disease (HCC) (Primary Dx); Hypertension; Idiopathic chronic gout without tophus, not otherwise specified; Type 2 diabetes mellitus, not otherwise specified (HCC) 02/07/2024 Documentation Only [facility] [address] [place] [phone] Rosi Verdugo 01/23/2024 Documentation [place] [facility] [place] [address] Rosi Verdugo 01/23/2024 Documentation Only [facility] [place] [address] Rosi Verdugo 01/12/2024 Orders [place] [facility] [place] [address] Chronic kidney disease, not otherwise specified 01/12/2024 Transcribe Orders [facility] [place] [address] Jose Adair MD Chronic kidney disease, not otherwise specified (Primary Dx) 12/22/2023 Documentation Only [facility] [place] [address] Arcenio Dixon MD 12/22/2023 Telephone [facility] [place] [address] Arcenio Dixon MD from Last 3 Months Immunizations Name Administration Dates Next Due Influenza Split 08/11/2006 MMR 05/04/2005 Td 05/04/2005 Family History Medical History Relation Comments Dementia Father Diabetes Father Hypertension Father Stroke Father Relation Status Comments Father Social History Tobacco Use Types Packs/Day Years Used Date Smoking Tobacco: Former Cigarettes 1.5 15 0 09/11/1990 - 09/11/2005 Smokeless Tobacco: Never Tobacco Cessation:Counseling Given: Not Answered Alcohol Use Standard Drinks/Week Comments Not Currently 0 (1 standard drink = 0.6 oz pur e alcohol) Sex and Gender Information Value Date Recorded Sex Assigned at Male 03/03/2020 10:03 PM EDT Gender Identity Male 03/03/2020 10:03 PM EDT Sexual Orientation Straight 03/03/2020 10 :03 PM EDT Last Filed Vital Signs Vital Sign Reading Time Taken Comments Blood Pressure 137/93 02/07/2024 9:56 AM CDT Pulse 79 02/07/2024 9:56 AM CDT Temperature - - Respiratory Rate - - Oxygen Saturation - - Inhaled Oxygen Concentration - - Weight 147 kg (324 lb) 02/07/2024 9:56 AM CDT Height 190.5 cm (6' 3) 02/07/2024 9:56 AM CDT Body Mass Index 40.5 02/07/2024 9:56 AM CDT Plan of Treatment Health Maintenance Due Date Last Done Comments Pneumococcal Vaccine: Pediat rics (0 to 5 Years) and At-Risk Patients (6 to 64 Years) (1 of 2 - PCV) 1976 Hepatitis B Vaccine (1 of 3 - 19+ 3-dose series) 06/12 Colorectal Cancer Screening: Annual FOBT 2019 Colorectal Cancer Screening: Colonoscopy 2019 Colorectal Cancer Screening: Sigmoidoscopy 2019 Diabetes: Ophthalmology Exam 02/03/2024 Diabetes: Pedal Pulse Checked 02/03/2024 Diabetes: Sensory Foot Exam 02/03/2024 Diabetes: Visual Foot Exam 02/03/2024 Diabetes: Hemoglobin A1C 03/27/2024 12/27/2023 Influenza Vaccine (Season Ended) 2024 08/11/20 06 Procedures Procedure Name Priority Date/Time Associated Diagnosis Comments LIPID PANEL Routine 12/27/2023 HEMOGLOBIN A1C Routine 12/27/2023 COMPREHENSIVE METABOLIC PANEL Routine 12/27/2023 CBC Routine 12/27/2023 from Last 3 Months Results * CBC (12/27/2023) WBC 5.29 K/uL PRINT/EXTE RNAL (NON-INTERFACE D LABS) Red Blood Cell Count 5.47 PRINT/EXTERNAL (NON-INTERFACE D LABS) Hemoglobin 14.7 g/dL PRINT/EXT ERNAL (NON-INTERFACE D LABS) Hematocrit 44.5 % PRINT/EXT ERNAL (NON-INTERFACE D LABS) MCV 81 PRINT/EXTE RNAL (NON-INTERFACE D LABS) MCH 27 PRINT/EXTE RNAL (NON-INTERFACE D LABS) MCHC 33 PRINT/EXTE RNAL (NON-INTERFACE D LABS) Platelet Count 157 PRINT /EXTERNAL (NON-INTERFACE D LABS) Blood (Blood, Venous) 12/27/2023 Historical Provider MD LAB BLOOD ORDERAB LES Performing Organization Address [facility] de Phone Number PRINT/EXTERNAL (NON-INTERFACED LABS) * (ABNORMAL) Hemoglobin A1c (12/27/2023) Hemoglobin A1C 13.1(H) PRINT /EXTERNA L (NON-INTERFAC ED LABS) Blood (Blood, Venous) 12/27/2023 Historical Provider MD LAB BLOOD ORDERAB LES Performing Organization Address [facility] de Phone Number PRINT/EXTERNAL (NON-INTERFACED LABS) * (ABNORMAL) Lipid panel (12/27/2023) Cholesterol, Total 115 P RINT/EXTERNA L (NON-INTERFAC ED LABS) Triglycerides 333(H) PRINT/ EXTERNA L (NON-INTERFAC ED LABS) HDL 24 mg/dL PRINT/EXTE RNA L (NON-INTERFAC ED LABS) LDL-Calculated 24 PRINT /EXTERNA L (NON-INTERFAC ED LABS) Non HDL Cholesterol 24 PRINT/EXTERNA L (NON-INTERFAC ED LABS) Blood (Blood, Venous) 12/27/2023 Historical Provider MD LAB BLOOD ORDERAB LES Performing Organization Address [facility] de Phone Number PRINT/EXTERNAL (NON-INTERFACED LABS) * (ABNORMAL) Comprehensive Metabolic Panel (12/27/2023) Glucose 410(H) mg/dL PRINT/EXTE RNA L (NON-INTERFAC ED LABS) BUN 17 mg/dL PRINT/EXTE RNA L (NON-INTERFAC ED LABS) Creatinine 1.1 mg/dL PRINT/EXT BALTAZAR L (NON-INTERFAC ED LABS) Sodium 136 mEq/L PRINT/EXTE RNA L (NON-INTERFAC ED LABS) Potassium 4.2 mEq/L PRINT/EXTE RNA L (NON-INTERFAC ED LABS) Chloride 97 PRINT/EXTE RNA L (NON-INTERFAC ED LABS) Carbon Dioxide 33(H) mmol/L PRINT /EXTERNA L (NON-INTERFAC ED LABS) Calcium 9.6 mg/dL PRINT/EXTE RNA L (NON-INTERFAC ED LABS) Albumin (Blood) 4.1 g/dL PRIN T/EXTERNA L (NON-INTERFAC ED LABS) AST (SGOT) 26 U/L PRINT/EXT BALTAZAR L (NON-INTERFAC ED LABS) ALT (SGPT) 48 U/L PRINT/EXT BALTAZAR L (NON-INTERFAC ED LABS) Alkaline Phosphatase 118 U/L PRINT/EXTERNA L (NON-INTERFAC ED LABS) Total Bilirubin 1.0 MG/DL PRIN T/EXTERNA L (NON-INTERFAC ED LABS) eGFR 80 PRINT/EXTE RNA L (NON-INTERFAC ED LABS) Total Protein, Serum 6.4 PRINT/EXTERNA L (NON-INTERFAC ED LABS) Anion Gap 6(L) PRINT/EXTE RNA L (NON-INTERFAC ED LABS) Blood (Blood, Venous) 12/27/2023 Historical Provider LAB BLOOD ORDERAB LES PRINT/EXTERNAL (NON-INTERFACED LABS) from Last 3 Months Care Teams Workforce Development Program Director Relationship Specialty Start Date End Date Ashia Kasper PA-C [address] [place] [id number] PCP - General 01/23/24
--- OUTSIDE RECORDS SUMMARY | 2024-02-15 14:08 | XMS_ITS | Encounter Summary ---
Author Organization [facility] Address [address] [place] [address] Care Team Providers Care Classifying Machine Operator Name Role Phone Ashia Kasper PA-C Primary Care Provider [phone] Encounter Details Date Type Department Care Team (Late st Contact Info) Description 01/23/2024 Documentation Only [facility] [place] [address] [place] [address] Rosi Verdugo [address] [place] [address] Social History Tobacco Use Types [...] on filedocumented in this encounter Care Teams Classifying Machine Operator Relationship Specialty Start Date End Date Ashia Kasper PA-C [address] [place] [address] PCP - General 01/23/24 documented as of this encounter
--- OUTSIDE RECORDS SUMMARY | 2024-02-15 14:08 | XMS_ITS | Encounter Summary ---
Author Organization [facility] Address [address] [place] [address] Care Team Providers Care Vice President Of Development Name Role Phone Ashia Kasper PA-C Primary Care Provider [phone] Encounter Details Date Type Department Care Team (Late st Contact Info) Description 02/15/2024 Orders Only [facility] [place] [address] [place] [phone] Arcenio Dixon MD [address] [place] [address] Stage 3a chronic kidney disease (HCC) Social History Tobacco Use Types Packs/Day Years [...] as of this encounter Visit Diagnoses Diagnosis Stage 3a chronic kidney disease (HCC) documented in this encounter Care Teams Vice President Of Development Relationship Specialty Start Date End Date Ashia Kasper PA-C [address] [place] [address] PCP - General 01/23/24 documented as of this encounter
--- OUTSIDE RECORDS SUMMARY | 2024-02-15 14:08 | XMS_ITS | Continuity of Care Document ---
Author Organization [facility] Address [address] [place] [address] Phone Care Team Providers Care Fire Department Battalion Chief Name Role Phone Unavailable Unavailable Unavailable Advance Directives Directive Yes / No Effective Date File Name No Information Encounters Encounter Description Practice Location Reason(s) For Visit Diagnoses Date Provider Providers Copied on Encounter [facility], [address], [place], [address], [place] tel:[phone] [facility] [place] No Information No Information Family History Family Member Type Diagnosis Age At Onset Problem (finding) Problem (finding) Problem (finding) Problem (finding) Problem (finding) Problem (finding) Payers Payer name Insurance type Covered green party ID Authoriza tion(s) [employer] [id number] Social History Type Description Quantity Date Captured [...]
--- OUTSIDE RECORDS SUMMARY | 2024-02-15 14:08 | XMS_ITS | Encounter Summary ---
Author Organization [facility] Address [address] [facility] [facility] [place] [address] Care Team Providers Care Director Learning Name Role Phone Ashia Kasper PA-C Primary Care Provider [phone] Encounter Details Date Type Department Care Team (Late st Contact Info) Description 03/19/2020 Orders [place] [facility] [place] [address] [place] [address] Arcenio Dixon MD [address] [place], [place] [phone] Secondary hypertension, not otherwise specified; Chronic kidney disease, Stage III (moderate) ([facility]) Social History Tobacco Use Types Packs/Day [...] (moderate) documented in this encounter Care Teams Director Learning Relationship Specialty Start Date End Date Ashia Kasper PA-C [address] [place] [id number] PCP - General 01/23/24 documented as of this encounter
--- OUTSIDE RECORDS SUMMARY | 2024-02-15 14:08 | XMS_ITS | Encounter Summary ---
Author Organization [facility] Address [address] [facility] [address] [place] [address] Care Team Providers Care Body Shop Mechanic Name Role Phone Ashia Kasper PA-C Primary Care Provider [phone] Reason for Visit * Reason Comments CKD New Patient * Consultation (Routine) - Closed Specialty Diagnoses / Procedures Referred By Contkeshawn t Referred To Contact Nephrology Diagnoses Chronic kidney disease, not otherwise specified [address] [place] [address] Phone: [phone] Arcenio Dixon MD [address] [place] [address] Referral ID Status Reason Start Date Expiration Date V isits Requested Visits Authorized [id number] Closed Specialty Services Required 01/12/2024 01/11/2025 1 1 Encounter Details Date Type Department Care Team (Late st Contact Info) Description 02/07/2024 10:00 AM EDT Office Visit [facility] [address] [place] [phone] Arcenio Dixon MD [address] [place], [place] [address] Stage 3a chronic kidney disease (HCC) (Primary Dx); Hypertension; Idiopathic chronic gout without tophus, not otherwise specified; Type 2 diabetes mellitus, not otherwise specified (HCC) Social History Tobacco Use Types Packs/Day [...] PM EDT documented as of this encounter Last Filed Vital Signs Vital Sign Reading [...] Mass Index 40.5 02/07/2024 9:56 AM CDT documented in this encounter Patient Instructions * Patient Instructions* Rosi Verdugo - 02/07/2024 10:00 AM CDT Increase HCTZ 25 mg/d. Labs and urine in 1 wk at [facility]. We will contact you with the results. I recommend Sleep Medicine consult for new CPAP. Follow up in 6 mo with ALAN in 6 mo and me in 1 yr. Call with updated Bps in 2 wks. [phone]. We will contact you to schedule your 6 month and 1 year follow ups when the schedule becomes available. Labs should be completed 1-2 weeks prior. They will be faxed to [facility] Please contact our office at [phone], if any questions or concerns arise. /Rosi Stewart MA Welcome to [facility] Although we are experts in the care of patients with chronic kidney disease, we understand that youare the expert regarding your own life. Our goal is to work with you in providing the best possiblecare and to meet your individual needs. In addition to our Nephrologists, we have a team of Advanced Practice Providers (ALAN's) to help closely monitor our patients. Our ALAN's have specialized training and experience in caring for renal patients. If your Rating Examiner deems it appropriate, you will be scheduled with an ALAN to manage your care. The keys to managing our patient's care include: Blood Pressure: Our goal is to keep your blood pressure 130/80 or lower. Heart and blood vessels: We want your LDL (bad cholesterol) to be below 100. Blood and Urine testing: Provides a more in depth 'picture' into the current renal status of a patient. If you smoke, it is important to quit. We want you to maintain good nutrition to keep your body healthy, so we do have a Renal Barker Peeler to help you with this. We encourage keeping a log of blood pressures for monitoring efficiency of any blood pressure medications. If you have diabetes, we want to keep your hemoglobin A1c at 7.0 or lower and your blood sugar 80 to 130. Avoid cold medications that include ephedrine, phenylpropolamine or pseudoephedrine (Sudafed, Actifed). If your doctor wants you to have a CT scan or MRI with IV contrast, be sure to let them know that you see a verifier for your kidney disease. Ask that they contact your verifier before this type of test is scheduled. When to call for your kidneys: Any new medications prescribed to you by other providers. Any new leg swelling or unexplained weight gain > 3-5 pounds. Consistently elevated Blood Pressure or dizziness (BP greater than 140/90) When to go to the Emergency Room: If you get dehydrated, or have excessive nausea, headache or vomiting, you may need to get IV fluids. If you cannot pass your urine completely (empty your bladder) as this may be a sign of an Acute Injury to your Kidney. Our Doctors, Advanced Practice Providers, nurses, and Renal Barker Peeler are here to provide you with the best renal care. We want you to feel free to call us when you have questions or concerns. To call the nurse at your verifier's office, please see the address and telephone number listed on your After Visit Summary. Thank you, The Physicians and staff at [facility] UNDERSTANDING YOUR BLOOD PRESSURE & LAB RESULTS People who develop chronic kidney disease may have some or all of the following tests. This sheet is to help you understand the results: Blood Pressure: Achieving the blood pressure goals identified by your kidney doctor is very important in slowing the progression of your kidney disease. Always take blood pressure medications as directed. Other steps to follow may include cutting down on the amount of salt in your diet, losing excess weight and following a regular exercise program. Serum Creatinine: Creatinine is a waste product in your blood that comes from muscle activity. It is normally removed from your blood by your kidneys, but when kidney function slows down, the creatinine level rises. (Lab Normal Range: Male: 0.5--1.3, Female: 0.4--1.1) BUN (Blood Urea Nitrogen): BUN is a waste product in your blood that is normally removed from your body by the kidneys. When your kidney function slows down or if you become dehydrated, the BUN levels rise. (Lab Normal Range: 7--24) Glomerular Filtration Rate (GFR): Your GFR tells how much kidney function you have. It is calculated from your blood level of creatinine. (Lab Normal Range: Equal to or greater than 60) Potassium: Potassium is a mineral in your blood that helps your heart and muscles work properly, too much or too little potassium can be harmful to your heart and other muscles in your body. Potassium levels can be controlled by careful dietary restrictions. Our dietitian can help plan your diet toget the right amount of potassium. (Lab Normal Range: 3.5--5.1) Phosphorus: Failing kidneys do not remove phosphorus efficiently. A high phosphorus level can lead to weak bones. If your level is too high, your kidney doctor may ask you to reduce your intake of foods that are high in phosphorus and take medications called phosphate binders with your meals and snacks. (Lab Normal Range: 2.5--4.9) Calcium: Calcium is a mineral that is important for strong bones. To help balance the amount of calcium in your blood, your kidney doctor may ask you to take calcium supplements and Vitamin D. Take only the supplements and medications recommended by your kidney doctor. (Lab Normal Range: 8.5--10.1) Parathyroid Hormone (PTH): This hormone is a marker for your bone health. High levels may result from a poor balance of calcium and phosphorus in your body that can cause bone disease. Your kidney doctor may order a special prescription form of Vitamin D to help lower your PTH. (Lab Normal Range: 14--72) Hemoglobin: Hemoglobin is the part of red blood cells that carries oxygen from your lungs to all parts of your body. A low hemoglobin level indicates too few red blood cells, which is called anemia. Anemia can make you feel tired or have a low energy level. If you have anemia, you may need treatment with iron supplements or a hormone called erythropoietin (EPO). You will be referred to a H[facility]ology Specialty [facility] ([facility]) to manage your anemia. (Lab Normal Range: Males: 14-18, Females: 12-16) TSAT and Serum Ferritin: Your TSAT (% iron saturation) and serum ferritin are measures of iron in your body. Abnormal values may indicate iron deficiency. Your kidney doctor may recommend iron supplements when needed. (Lab Normal Range: TSAT: 15--50; Serum Ferritin: 8--388) Cholesterol tests: Patients with kidney disease have an increased risk for cardiovascular disease (heart disease), therefore it is important that your cholesterol is well controlled. Dietary changes,exercise, and cholesterol lowering medication can lower cholesterol levels and decrease cardiovascular risk. Total Cholesterol: Cholesterol is a fat-like substance found in your blood. A high cholesterol level may increase your chance of having heart and circulation problems. For many patients, the target level is less than 200. HDL Cholesterol: HDL is a type of 'good' cholesterol that protects your heart. For many patients, the target level for HDL is above 40. LDL Cholesterol: LDL is a type of 'bad' cholesterol. A high LDL level may increase your chance of having heart and circulation problems. For many patients, a good level for LDL cholesterol is below 100, but some patients may have an even lower goal. Triglyceride: Triglyceride is a type of fat found in your body. A high triglyceride level along with high levels of total and LDL cholesterol may increase your chance of heart and circulation problems. For many patients, the target level is less than 150. HgbA1c: The HgbA1c is a marker of diabetes control for the past two to three months. Adequate diabetes control has been proven to slow the progression of kidney failure. (Lab Normal Range: Less than or equal to 5.6 if average glucose is less than or equal to 114.) Avoiding Non-Steroidal Anti-Inflammatory Drugs (NSAIDs) Taking medications called NSAIDS (list of names below) can damage your kidneys and we recommend youdo not take them. Because many patients do not recognize NSAIDs by their brand or generic names, there may be overlap in prescription and Over the Counter (OTC) use. NSAIDs are sold under many different brand names, so ask your pharmacist or health care provider if the medicines you take are safe to use. Below is a list of common NSAIDs: ibuprofen (Advil, Motrin, Midol, Wal-Profin) naproxen (Aleve, Naprosyn, Midol Extended Relief, Anaprox) meloxicam (Mobic), oxaprozin (Daypro), piroxicam (Feldene) celecoxib (Celebrex) indomethacin (Indocin) If you take OTC or prescription medicines for headaches, pain, fever, or colds, you may be taking NSAIDs. If you are unsure if a product contains an NSAID, ask your pharmacist or your health care provider. You can also look for product contents on the Drug Facts labels. Dr. Dixon/TAMMY Aranda documented in this encounter Progress Notes * Arcenio Dixon MD - 02/07/2024 10:00 AM CDT Images from the original note were not included. Patient: Wilbert Garcia Sr. Date of : 1970, 53 y.o. male Chart: [id number] PCP: Ashia Kasper PA-C Date of Service: 02/07/2024 Chief Complaint: I was asked by Ashia Kasper to evaluate Wilbert Garcia Sr. for resistant HTN and CKD-3. History of Present Illness: Wilbert is a pleasant 53 y/o who is was re-referred for difficult to control HTN, low K+ and CKD. I met him May via Telehealth during the Covid crisis. He had not f/u'd. Since we last saw him, he is off the Aldactone. Stopped using his CPAP due to recall of machine. Has lost wt but now diagnosed with T2DM, A1C 13.1 12/27. On escalating doses of insulin per PCP. Taking his BP meds but home readings 160's via wrist cuff. No SOB or CP. No VELASQUEZ or blurry vision. Explained need to resume CPAP 100% of nights, as it pertains to HTN control. Went over all his Labs from [facility]: In November he had BP 200's and sent to ED. Spent the night at [facility]. Says my K+ was dangerously low. Now on CCB, BB, ARCELIA, HCTZ. Just did a 24 hr urine but doesn't know the results, orwhat was checked (? r/o PHEO). Recently his BP's 140-160/80-90's. Last night was 159/92 and today was 140/88. No VELASQUEZ, CP, LEMOS, palpitations. Does have some L shoulder pain and feels sweaty a lot but it has been hot out. In regards to CKD, his Cr was 1.4 11/24/19. It was 1.13 11/07/14. He denies CKD. No U/A's to review. He had a renal U/S at [facility], but I can't see it in Care Everywhere. He does not recall if there was anything abnormal on it. Has a h/o BPH sxs, on Flomax. No stones, no dysuria hematuria, or foamy urine. No FHx CKD. No NSAIDS. Assessment & Plan 1. HTN with HTN urgency in November. 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 This maded hyperaldosteronism a possibility, although renin/jaiden ratio not convincing. He also has untreated MAURI and exogenous obesity which are likely playing a role. -Had a full secondary w/u and since a 30-40 pack yr smoker, he got a Duplex to r/o OTTO, and neg. Unlikey to have a Pheo, but he did have a recent 24 hr urine, and neg. Not likely to be hyperthyroidism since he is obese. -Goal 130/80's and he is not there yet. -Increase HCTZ to 25 mg/d. Next would change Flomax to Hytrin HD -Needs low Na+ diet, wt loss, etc. -Keep home diary and call in 2 wks with new update. -I rec a new Sleep Study consult and resume CPAP. 2. CKD-2. U/A, Up/Uc nl in . Repeat Up/Uc in 1-2 wks. Has risk factors for CKD--> severe HTN now T2DM both with suboptimal control, exogenous obesity. -Goal SBP 130/80, LDL <70, A1C< 6.5%, avoid chronic NSAIDS. -on max ARCELIA, consider switch to max ARB -If any proteinuria, would be a great candidate for an SGLT-2i. 3. MAURI-using his CPAP but needs 100% compliance. 4. 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 See #1 above. Last K+ nl at 4.2 off the aldactone. Repeat BMP in 1-2 wks on higher HCTZ. May need dietary K+ increase. Return in about 1 year (around 02/06/2025) for ALAN and Zack. Arcenio Dixon MD [facility], Active Problems Patient Active Problem List Diagnosis Chronic kidney disease Benign prostatic hyperplasia Hypertension Hyperlipidemia Gout Gastroesophageal reflux disease Type 2 diabetes mellitus (HCC) Review of Systems Comprehensive ROS was negative other than above and in HPI. PHYSICAL EXAM Vitals: 02/07/24 0956 BP: 137/93 BP Location: Left upper arm Patient Position: Sitting BP Cuff Size: Large adult Pulse: 79 Weight: (!) 324 lb (147 kg) Height: 6' 3 (1.905 m) Constitutional: comfortable, calm, WDWN, normal grooming Eyes: pupils equal, sclera non-icteric ENMT: atraumatic, neck movement unrestricted, moist oral mucosa Resp: CTA bilaterally, normal effort, no respiratory distress CV: RRR, TR leg edema Skin: no facial rash or erythema visible Psychiatric: alert, oriented x 3, mood and affect appropriate Outpatient Medications Marked as Taking for the 02/07/24 encounter (Office Visit) with Arcenio Dixon MD Medication Sig Dispense Refill allopurinol (ZYLOPRIM) 300 MG tablet Take 1 tablet by mouth 2 (two) times a day amLODIPine (NORVASC) 5 MG tablet Take 1 tablet by mouth 2 (two) times a day aspirin (ST JUAN MANUEL) 81 MG EC tablet Take 81 mg by mouth 1 (one) time each day atorvastatin (LIPITOR) 40 MG tablet Take 1 tablet by mouth 1 (one) time each day in the evening FLUoxetine (PROzac) 20 MG capsule Take 1 capsule by mouth every morning lisinopril (PRINIVIL,ZESTRIL) 40 MG tablet Take 1 tablet by mouth every morning Metoprolol Succinate 100 MG capsule extended-release 24 hour sprinkle Take 1 tablet by mouth every night omeprazole (PriLOSEC) [address] capsule TAKE ONE CAPSULE BY MOUTH EVERY DAY NEEDED FOR REFLUX Semglee, yfgn, 100 UNIT/ML solution pen-injector INJECT 10 UNITS SUBCUTANEOUSLY EVERY EVENING tamsulosin (FLOMAX) 0.4 MG 24 hr capsule Take 1 capsule by mouth 1 (one) time each day traZODone (DESYREL) 50 MG tablet TAKE ONE TABLET BY MOUTH EVERY EVENING AT BEDTIME [DISCONTINUED] hydroCHLOROthiazide (MICROZIDE) 12.5 MG capsule Take 1 capsule by mouth every morning Orders Placed This Encounter Medications hydroCHLOROthiazide 25 MG tablet Sig: Take 1 tablet (25 mg total) by mouth 1 (one) time each day Dispense: 90 tablet Refill: 3 Allergies Allergen Reactions Perflutren Lipid Microspheres Propylene Glycol Chemistry and Bone Mineral Lab Units 12/27/23 0000 10/04/22 0000 SODIUM mEq/L 136 141 POTASSIUM mEq/L 4.2 3.6 CHLORIDE 97 104 CO2 mmol/L 33* 31 CALCIUM mg/dL 9.6 9.1 ALK PHOS U/L 118 80 URIC ACID MG/DL -- 6.4 GLUCOSE mg/dL 410* 132* ALBUMIN g/dL 4.1 4.2 BUN mg/dL 17 21 CREATININE mg/dL 1.1 1.4 HEMOGLOBIN A1C 13.1* -- CBC and Iron Studies Lab Units 12/27/23 0000 WBC AUTO K/uL 5.29 HEMATOCRIT % 44.5 HEMOGLOBIN g/dL 14.7 MCV 81 PLATELETS AUTO 157 I have performed a complete review of pertinent labs results 02/07/2024 The following portions of the patient's chart were reviewed in this encounter and updated as appropriate: Tobacco Allergies Meds Med Hx Surg Hx Fam Hx Past Medical History: Diagnosis Date Essential hypertension Gout Hypertrophy (benign) of prostate without urinary obstruction and other lower urinary tract (LUTS) Sleep apnea Transient cerebral ischemia History reviewed. No pertinent surgical history. Social History Tobacco Use Smoking status: Former Current packs/day: 0.00 Average packs/day: 1.5 packs/day for 15.0 years (22.5 ttl pk-yrs) Types: Cigarettes Start date: 09/11/1990 Quit date: 09/11/2005 Years since quittin.4 Smokeless tobacco: Never Substance Use Topics Alcohol use: Not Currently Drug use: Not Currently Family History Problem Relation Age of Onset Diabetes Father Hypertension Father Stroke Father Dementia Father documented in this encounter Plan of Treatment Scheduled Orders Name Type Priority Associated Diagnoses Orde r Schedule Renal Function Panel Lab Routine Stage 3a chronic kidney disease (HCC) Expected: 02/15/2024 (Approximate), Expires: 03/08/2025 Urine Albumin / Creatinine Ratio Lab Routine Stage 3a chronic kidney disease (HCC) Expected: 02/15/2024 (Approximate), Expires: 03/08/2025 PTH, Intact Lab Routine Stage 3a chronic kidney disease (HCC) Expected: 02/15/2024 (Approximate), Expires: 03/08/2025 Hemoglobin Lab Routine Stage 3a chronic kidney disease (HCC) Expected: 02/15/2024 (Approximate), Expires: 03/08/2025 Urinalysis with microscopic Lab Routine Stage 3a chronic kidney disease (HCC) Expected: 02/15/2024 (Approximate), Expires: 03/08/2025 documented as of this encounter Visit Diagnoses Diagnosis Stage 3a chronic kidney disease (HCC)- Primary Hypertension Idiopathic chronic gout without tophus, not otherwise specified Type 2 diabetes mellitus, not otherwise specified (HCC) documented in this encounter Care Teams Body Shop Mechanic Relationship Specialty Start Date End Date Ashia Kasper PA-C [address] [place] [address] PCP - General 01/23/24 documented as of this encounter
--- OUTSIDE RECORDS SUMMARY | 2024-02-15 14:08 | XMS_ITS | Encounter Summary ---
Author Organization [facility] Address [address] [place] [address] Care Team Providers Care Technical Assoc Name Role Phone Jose Adair MD Primary Care Provider [phone] Encounter Details Date Type Department Care Team (Late st Contact Info) Description 12/22/2023 Documentation Only [facility] [place] [address] [place] [id number] Arcenio Dixon MD [address] [place], [place] [address] Social History Tobacco Use Types Packs/Day Years [...] on filedocumented in this encounter Care Teams Technical Assoc Relationship Specialty Start Date End Date Jose Adair MD [address] [place] [address] PCP - General Family Medicine 02/12/20 01/11/24 documented as of this encounter
--- OUTSIDE RECORDS SUMMARY | 2024-02-15 14:08 | XMS_ITS | Encounter Summary ---
Author Organization [facility] Address [address] [place] [address] Care Team Providers Care Photogrammetry Airplane Pilot Name Role Phone No, Pcp Primary Care Provider Unavailabl e Encounter Details Date Type Department Care Team (Late st Contact Info) Description 12/22/2023 Telephone [facility] [place] [address] [place] [address] Arcenio Dixon MD [address] [place], [place] [address] Social History Tobacco Use Types Packs/Day Years [...] * Telephone Encounter - Remedios Douglas - 01/12/2024 11:31 AM CDT Patient is a legacy patient seen over 3 years ago. Patient is scheduled 02/[address] Dixon. Patient is being mailed a new patient packet. * Telephone Encounter - Remedios Douglas - 12/23/2023 10:18 AM CDT LVM to schedule per re-referral from [facility] for CKD, unspecified. Recall created. * Telephone Encounter - Remedios Douglas - 12/22/2023 11:11 AM CDT Patient was re-referred to [facility]: 1) Re-referred from: [facility] 2) Reason for re-referral/diagnosis: CKD, unspecified 3) What records were uploaded to chart?: Re-referral with progress note and lab documented in this encounter Plan of Treatment Not on file documented as of this encounter Visit Diagnoses Not on filedocumented in this encounter Care Teams Photogrammetry Airplane Pilot Relationship Specialty Start Date End Date No, Pcp PCP - General Internal Medicine 01/12/24 01/22/24 documented as of this encounter
--- OUTSIDE RECORDS SUMMARY | 2024-02-15 14:08 | XMS_ITS | Encounter Summary ---
Author Organization [facility] Address [address] [place] [address] Care Team Providers Care Retail Analyst Name Role Phone Ashia Kasper PA-C Primary Care Provider Encounter Details Date Type Department Care Team (Late st Contact Info) Description 02/07/2024 Documentation Only [facility] [place] [address] [place] [address] Rosi Verdugo [address] [place] [address] Social History Tobacco Use Types [...] PM EDT documented as of this encounter Progress Notes * Rosi Verdugo - 02/07/2024 9:31 AM CDT Data basing new pt labs documented in this encounter Plan of Treatment Not on file documented as of this encounter Procedures Procedure Name Priority Date/Time Associated Diagnosis Comments CBC Routine 12/27/2023 HEMOGLOBIN A1C Routine 12/27/2023 LIPID PANEL Routine 12/27/2023 COMPREHENSIVE METABOLIC PANEL Routine 12/27/2023 URIC ACID Routine 10/04/2022 LIPID PANEL Routine 10/04/2022 COMPREHENSIVE METABOLIC PANEL Routine 10/04/2022 documented in this encounter Results * (ABNORMAL) Lipid panel (12/27/2023) Cholesterol, Total 115 P RINT/EXTERNA L (NON-INTERFAC ED LABS) Triglycerides 333(H) PRINT/ EXTERNA L (NON-INTERFAC ED LABS) HDL 24 mg/dL PRINT/EXTE RNA L (NON-INTERFAC ED LABS) LDL-Calculated 24 PRINT /EXTERNA L (NON-INTERFAC ED LABS) Non HDL Cholesterol 24 PRINT/EXTERNA L (NON-INTERFAC ED LABS) Blood (Blood, Venous) 12/27/2023 Historical Provider MD LAB BLOOD ORDERAB LES PRINT/EXTERNAL (NON-INTERFACED LABS) * (ABNORMAL) Hemoglobin A1c (12/27/2023) Hemoglobin A1C 13.1(H) PRINT /EXTERNA L (NON-INTERFAC ED LABS) Blood (Blood, Venous) 12/27/2023 Historical Provider MD LAB BLOOD ORDERAB LES PRINT/EXTERNAL (NON-INTERFACED LABS) * (ABNORMAL) Comprehensive Metabolic [...] LAB BLOOD ORDERAB LES PRINT/EXTERNAL (NON-INTERFACED LABS) * CBC (12/27/2023) WBC 5.29 K/uL PRINT/EXTE [...] LAB BLOOD ORDERAB LES Performing Organization Address [facility] de Phone Number PRINT/EXTERNAL (NON-INTERFACED LABS) * (ABNORMAL) Lipid panel (10/04/2022) Cholesterol, Total 137 P RINT/EXTERNA L (NON-INTERFAC ED LABS) Triglycerides 224(H) PRINT/ EXTERNA L (NON-INTERFAC ED LABS) HDL 30(L) mg/dL PRINT/EXTE RNA L (NON-INTERFAC ED LABS) LDL-Calculated 62 PRINT /EXTERNA L (NON-INTERFAC ED LABS) Blood (Blood, Venous) 10/04/2022 Historical Provider MD LAB BLOOD ORDERAB LES Performing Organization Address [facility] de Phone Number PRINT/EXTERNAL (NON-INTERFACED LABS) * Uric Acid (10/04/2022) Uric Acid 6.4 MG/DL PRINT/EXTE RNAL (NON-INTERFACED LABS) Blood (Blood, Venous) 10/04/2022 Historical Provider MD LAB BLOOD ORDERAB LES Performing Organization Address [facility] de Phone Number PRINT/EXTERNAL (NON-INTERFACED LABS) * (ABNORMAL) Comprehensive Metabolic Panel (10/04/2022) Glucose 132(H) mg/dL PRINT/EXTE RNA L (NON-INTERFAC ED LABS) BUN 21 mg/dL PRINT/EXTE RNA L (NON-INTERFAC ED LABS) Creatinine 1.4 mg/dL PRINT/EXT BALTAZAR L (NON-INTERFAC ED LABS) Sodium 141 mEq/L PRINT/EXTE RNA L (NON-INTERFAC ED LABS) Potassium 3.6 mEq/L PRINT/EXTE RNA L (NON-INTERFAC ED LABS) Chloride 104 PRINT/EXTE RNA L (NON-INTERFAC ED LABS) Carbon Dioxide 31 mmol/L PRINT /EXTERNA L (NON-INTERFAC ED LABS) Calcium 9.1 mg/dL PRINT/EXTE RNA L (NON-INTERFAC ED LABS) Albumin (Blood) 4.2 g/dL PRIN T/EXTERNA L (NON-INTERFAC ED LABS) AST (SGOT) 26 U/L PRINT/EXT BALTAZAR L (NON-INTERFAC ED LABS) ALT (SGPT) 42 U/L PRINT/EXT BALTAZAR L (NON-INTERFAC ED LABS) Alkaline Phosphatase 80 U/L PRINT/EXTERNA L (NON-INTERFAC ED LABS) Total Bilirubin 0.8 MG/DL PRIN T/EXTERNA L (NON-INTERFAC ED LABS) eGFR 60 PRINT/EXTE RNA L (NON-INTERFAC ED LABS) Total Protein, Serum 6.6(A) PRINT/EXTERNA L (NON-INTERFAC ED LABS) Blood (Blood, Venous) 10/04/2022 Historical Provider LAB BLOOD ORDERAB LES PRINT/EXTERNAL (NON-INTERFACED LABS) documented in this encounter Visit Diagnoses Not on filedocumented in this encounter Care Teams Retail Analyst Relationship Specialty Start Date End Date Ashia Kasper PA-C [address] [place] [id number] PCP - General 01/23/24 documented as of this encounter
--- OUTSIDE RECORDS SUMMARY | 2024-02-15 14:08 | XMS_ITS | Encounter Summary ---
Author Organization [facility] Address [address] [place] [address] Care Team Providers Care School Photograph Editor Name Role Phone Ashia Kasper PA-C Primary Care Provider [phone] Encounter Details Date Type Department Care Team (Late st Contact Info) Description 03/06/2020 Orders Only [facility] [place] [address] [place] [address] Arcenio Dixon MD [address] [place] [address] Secondary hypertension, not otherwise specified; Chronic kidney disease, Stage III (moderate) (HCC) Social History Tobacco Use Types Packs/Day [...] encounter Results * TSH (03/07/2020) TSH 0.639 [facility] Blood 03/07/2020 Arcenio Dixon MD LAB BLOOD ORDERABLES Performing Organization Address [facility] Co de Phone Number [facility] * Renin Activity, Plasma (03/07/2020) Renin Plasma 0.1 ng/mL/hr [facility] Blood (Blood, Venous) 03/07/2020 Arcenio Dixon MD LAB BLOOD ORDERABLES Performing Organization Address City/[facility]/ZIP Co de Phone Number [facility] * Aldosterone (03/07/2020) Aldosterone 18.9 ng/dL [facility] Blood (Blood, Venous) 03/07/2020 Arcenio Dixon MD LAB BLOOD ORDERABLES Performing Organization Address [facility] de Phone Number [facility] * Protein, Total, Random Urine w/Creatinine (Protein/Creat Ratio) (03/07/2020) Creatinine, Urine Random 658 mg/dL [facility] Urine Protein/Creatin ine Ratio 0.09 mg/mg creat [facility] Protein Urine Random 61 mg/dL [facility] Urine (Urine, Clean Catch) 03/07/2020 Arcenio Dixon MD LAB URINE ORDERABLES Performing Organization Address [facility] de Phone Number [facility] * PTH, Intact (03/07/2020) Parathyroid Hormone, Intact 28 pg/mL [facility] Blood (Blood, Venous) 03/07/2020 Arcenio Dixon MD LAB BLOOD ORDERABLES Performing Organization Address [facility] de Phone Number [facility] * Hemoglobin (03/07/2020) Hemoglobin 15.3 13.5 - 17.5 [facility] Blood (Blood, Venous) 03/07/2020 Arcenio Dixon MD LAB BLOOD ORDERABLES Performing Organization Address [facility] de Phone Number [facility] * (ABNORMAL) Renal Function Panel (03/07/2020) Glucose 131(H) mg/dL [facility] BUN 17 mg/dL [facility] Creatinine 1.3 mg/dL [facility] Sodium 142 mEq/L [facility] Potassium 3.7 mEq/L [facility] Chloride 102 [facility] Carbon Dioxide 32 mmol/L [facility] Calcium 10.0 mg/dL [facility] Phosphorus, Serum 3.3 mg/dL [facility] Albumin (Blood) 4.4 g/dL [facility] Blood (Blood, Venous) 03/07/2020 Arcenio Dixon MD LAB BLOOD ORDERABLES Performing Organization Address [facility] de Phone Number [facility] documented in this encounter Visit Diagnoses Diagnosis Secondary hypertension, not otherwise specified Chronic kidney disease, Stage III (moderate) documented in this encounter Care Teams School Photograph Editor Relationship Specialty Start Date End Date Ashia Kasper PA-C [address] [place] [id number] PCP - General 01/23/24 documented as of this encounter
--- OUTSIDE RECORDS SUMMARY | 2024-02-15 14:08 | XMS_ITS | Encounter Summary ---
Author Organization [facility] Address [address] [place] [address] Care Team Providers Care Rail Switch Operator Name Role Phone Ashia Kasper PA-C Primary Care Provider [phone] Encounter Details Date Type Department Care Team (Late st Contact Info) Description 09/08/2020 Orders Only [facility] [place] [address] [place] [id number] Arcenio Dixon MD [address] [place], [place] [address] Chronic kidney disease, Stage III (moderate) Social [...] (moderate) documented in this encounter Care Teams Rail Switch Operator Relationship Specialty Start Date End Date Ashia Kasper PA-C [address] [place] [address] PCP - General 01/23/24 documented as of this encounter
--- OUTSIDE RECORDS SUMMARY | 2024-02-15 14:08 | XMS_ITS | Encounter Summary ---
Author Organization [facility] [place] Address [address] [place] [address] Care Team Providers Care Doll Eye Setter Name Role Phone No, Pcp Primary Care Provider Unavailabl e Encounter Details Date Type Department Care Team (Late st Contact Info) Description 01/12/2024 Orders Only [facility] [place] [address] [place] [address] Chronic kidney disease, not otherwise specified Social History Tobacco Use Types Packs/Day Years [...] Diagnoses Diagnosis Chronic kidney disease, not otherwise specified documented in this encounter Care Teams Doll Eye Setter Relationship Specialty Start Date End Date No, Pcp PCP - General Internal Medicine 01/12/24 01/22/24 documented as of this encounter
[2024-02-15 14:29] LABS: Appearance Urine Clear (Clear); Bilirubin Urine 1+ (Negative); Blood Urine Negative (Negative); Color Urine Yellow (Yellow); Glucose Urine Negative (Negative); Ketones Urine Negative (Negative); Leukocyte Esterase Urine Negative (Negative); Nitrite Urine Negative (Negative); Protein Urine Trace (Negative); Specific Gravity Urine 1.025 (1.000-1.030)
[2024-02-15 14:30] LABS: Hemoglobin* 14.3 gm/dL (13.5-17.5)
[2024-02-15 14:31] LABS: Albumin* 4.3 g/dL (3.3-5.0); Chloride* 100 mmol/L (96-114); Potassium* 4.1 mmol/L (3.6-5.1); Sodium* 140 mmol/L (135-149)
[2024-02-15 14:34] LABS: Anion Gap 5 mEq/L (7-15); Blood Urea Nitrogen* 19 mg/dL (7-30); Carbon Dioxide* 35 mmol/L (20-32); Creatinine* 1.3 mg/dL (0.5-1.5); Estimated Glomerular Filt Rate 66 ml/min; Glucose* 214 mg/dL (60-115); Phosphorus* 3.4 mg/dL (2.5-4.5)
[2024-02-15 14:35] LABS: Calcium* 9.9 mg/dL (8.4-10.6)
[2024-02-15 14:46] LABS: PTH Intact* 54.4 pg/mL (14.2-75.2)
[2024-02-15 14:58] LABS: Creatinine Urine 319.3 mg/dL
[2024-02-15 15:01] LABS: Microalbumin Creatinine Ratio 0 mg/g (0-30); Microalbumin Urine 2 mg/dL
[2024-02-15 15:02] LABS: Bacteria Urine Few; RBC Urine 0-2 (0-2); Squamous Epithelial Cell Urine Few (None-Few)
[2024-02-15 15:03] LABS: Fine Granular Casts Urine Few
== END 2024-02-15 14:06 | disposition home or self-care (01) ==
LOC: NPINS 14:05
PROVIDERS: PCP Physician Assistant Medical; Visit Provider Internal Medicine Nephrology
DX: I12.9 Hypertensive chronic kidney disease with stage 1 through stage 4 chronic kidney disease, or unspecified chronic kidney disease (principal); E11.22 Type 2 diabetes mellitus with diabetic chronic kidney disease; N18.30 Chronic kidney disease, stage 3 unspecified; E87.6 Hypokalemia; N40.0 Benign prostatic hyperplasia without lower urinary tract symptoms; E78.5 Hyperlipidemia, unspecified; M10.9 Gout, unspecified
CPT/HCPCS: 80069; 81001; 82043; 82570; 83970; 85018; 87086